=== PATIENT | male | born 1960 | race Two or more races ===

== ENCOUNTER 2023-03-05 20:41 | Inpatient (IN) | payer OTHER ==
[~2023-03-05] VITALS: Ht 170.2 cm; Wt 79.2 kg
[2023-03-05 21:58] LABS: Basophils # (auto) 0 10 ^3/uL (0-0.2); Basophils % (auto) 0.5 % (0.0-2.0); Eosinophils # (auto) 0 10 ^3/uL (0-0.8); Eosinophils % (auto) 1.1 % (0.0-7.0); Hematocrit 44.5 % (41.0-53.0); Hemoglobin 15.3 g/dL (13.5-17.5); Lymphocytes # (auto) 1.6 10 ^3/uL (0.4-5.4); Lymphocytes % (auto) 40.5 % (10.0-50.0); Mean Corpuscular Hemoglobin 32.7 pg (28.0-32.0); Mean Corpuscular Hgb Conc. 34.3 g/dL (32.0-36.0); Mean Corpuscular Volume 95.5 fL (80.0-100.0); Monocytes # (auto) 0.4 10 ^3/uL (0-1.3); Monocytes % (auto) 10.1 % (0.0-12.0); Neutrophils # (auto) 1.9 10 ^3/uL (1.6-8.6); Neutrophils % (auto) 47.8 % (37.0-80.0); Nucleated Red Blood Cells % 0.1 %; Red Blood Cells 4.66 10^6/uL (4.5-5.90); Red Cell Distribution Width 12.9 % (11.8-14.3); White Blood Cell 4.1 10^3/uL (4.4-10.8)
[2023-03-05 22:00] VITALS: PULSE 79; RESP 15; O2SAT 93
[2023-03-05 22:15] LABS: Albumin 3.8 g/dL (3.4-5.0); Calcium 8.9 mg/dL (8.5-10.1); Potassium 4.1 mmol/L (3.5-5.1)
[2023-03-05 22:18] LABS: BUN/Creatinine Ratio 18.8 (10.0-20.0); Bilirubin, Total 0.4 mg/dL (0.2-1.0); Total Protein 6.8 g/dL (6.4-8.2)
[2023-03-06] MEDS ORDERED: ONDANSETRON HCL 4 MG/2 ML VIAL IV PRN (02:30)
[2023-03-06] MEDS ORDERED: DOCUSATE SOD 100 MG CAP PO PRN (02:30)
[2023-03-06] MEDS ORDERED: ACETAMINOPHEN 325 MG TAB PO PRN (02:30)
[2023-03-06] MEDS ORDERED: NITROGLYCERIN 0.4 MG SL TAB SL PRN (02:30)
[2023-03-06] MEDS ORDERED: DEXTROSE (50%) 50ML SYRG IV PRN (02:30)
[2023-03-06] MEDS ORDERED: MORPHINE SULFATE INJ 2 MG/ml SYRG IV PRN (02:30)
[2023-03-06] MEDS ORDERED: SODIUM CHLORIDE 0.9% 1,000 ML IV SCH (02:30)
[2023-03-06 06:37] LABS: Basophils # (auto) 0 10 ^3/uL (0-0.2); Basophils % (auto) 0.4 % (0.0-2.0); Eosinophils # (auto) 0 10 ^3/uL (0-0.8); Eosinophils % (auto) 1.1 % (0.0-7.0); Hematocrit 44.4 % (41.0-53.0); Hemoglobin 15.2 g/dL (13.5-17.5); Lymphocytes # (auto) 1.6 10 ^3/uL (0.4-5.4); Lymphocytes % (auto) 36.2 % (10.0-50.0); Mean Corpuscular Hgb Conc. 34.3 g/dL (32.0-36.0); Monocytes # (auto) 0.4 10 ^3/uL (0-1.3); Monocytes % (auto) 9.9 % (0.0-12.0); Neutrophils # (auto) 2.2 10 ^3/uL (1.6-8.6); Neutrophils % (auto) 52.4 % (37.0-80.0); Nucleated Red Blood Cells % 0.1 %; Red Blood Cells 4.62 10^6/uL (4.5-5.90); Red Cell Distribution Width 12.9 % (11.8-14.3); White Blood Cell 4.3 10^3/uL (4.4-10.8)
[2023-03-06 07:09] LABS: Potassium 3.8 mmol/L (3.5-5.1)
[2023-03-06 07:13] LABS: Urine Bacteria NONE SEEN /hpf (None Seen); Urine Blood Negative /uL (Negative); Urine Mucus FEW (None Seen); Urine Specific Gravity 1.017 (1.001-1.035); Urine WBC <1 /hpf (0 - 3)
[2023-03-06 07:21] LABS: Albumin 3.6 g/dL (3.4-5.0); BUN/Creatinine Ratio 17.8 (10.0-20.0); Bilirubin, Total 0.6 mg/dL (0.2-1.0); Calcium 8.6 mg/dL (8.5-10.1); Total Protein 6.5 g/dL (6.4-8.2)
[2023-03-06 07:24] LABS: Alcohol, Urine < 3.0 mg/dL (0-10); Amphetamine Screen, Urine NEGATIVE (NEGATIVE); Barbiturate Scree,Urine NEGATIVE (NEGATIVE); Benzodiazephine Screen, Urine NEGATIVE (NEGATIVE); Cannabinoid Screen, Urine NEGATIVE (NEGATIVE); Cocaine Screen, Urine NEGATIVE (NEGATIVE); Opiate Scree,Urine NEGATIVE (NEGATIVE); Phencyclidine Screen, Urine NEGATIVE (NEGATIVE)
[2023-03-06 08:00] VITALS: PULSE 78; RESP 15; O2SAT 93
[2023-03-06] MEDS: ACCU-CHEK COMFORT CURVE STRIP VI SCH ×4 (08:22→23:08)
[2023-03-06] MEDS: InsuLIN REG 1unit/0.01ml Soln (100units/ml) SC SCH ×4 (08:23→23:15)
[2023-03-06] MEDS: ASPirin 81 mg TAB PO SCH (12:28)
[2023-03-06 12:34] LABS: Cholesterol 200 mg/dL (< 200); HDL Cholesterol 55 mg/dL (40-59); LDL Cholesterol 111 mg/dL (< 100); Triglycerides 261 mg/dL (< 150)
[2023-03-06 19:30] VITALS: PULSE 80; RESP 18; O2SAT 94
[2023-03-06] MEDS: ATORVASTATIN 20 MG TAB PO SCH (23:11)
[2023-03-06] MEDS: HYDROcodone-ACET 5/325MG TAB PO PRN (23:11)
[2023-03-07] VITALS (7 sets, daily range): BP systolic 120–171; BP diastolic 80–96; PULSE 71–93; RESP 16–17; TEMP 98.1–98.2; O2SAT 94–97
[2023-03-07 05:22] LABS: Basophils # (auto) 0 10 ^3/uL (0-0.2); Basophils % (auto) 0.5 % (0.0-2.0); Eosinophils # (auto) 0.1 10 ^3/uL (0-0.8); Eosinophils % (auto) 1.2 % (0.0-7.0); Hematocrit 48.6 % (41.0-53.0); Hemoglobin 16.6 g/dL (13.5-17.5); Lymphocytes % (auto) 43.7 % (10.0-50.0); Mean Corpuscular Hemoglobin 32.8 pg (28.0-32.0); Mean Corpuscular Hgb Conc. 34.2 g/dL (32.0-36.0); Mean Corpuscular Volume 95.9 fL (80.0-100.0); Monocytes # (auto) 0.4 10 ^3/uL (0-1.3); Neutrophils # (auto) 2.1 10 ^3/uL (1.6-8.6); Neutrophils % (auto) 45.6 % (37.0-80.0); Nucleated Red Blood Cells % 0.2 %; Red Blood Cells 5.07 10^6/uL (4.5-5.90); Red Cell Distribution Width 13.1 % (11.8-14.3); White Blood Cell 4.6 10^3/uL (4.4-10.8)
[2023-03-07 05:36] LABS: Albumin 3.7 g/dL (3.4-5.0); Calcium 8.5 mg/dL (8.5-10.1)
[2023-03-07 05:39] LABS: BUN/Creatinine Ratio 19.5 (10.0-20.0); Bilirubin, Total 0.5 mg/dL (0.2-1.0); Total Protein 6.8 g/dL (6.4-8.2)
[2023-03-07] MEDS: ACCU-CHEK COMFORT CURVE STRIP VI SCH ×4 (07:00→21:17)
[2023-03-07] MEDS: InsuLIN REG 1unit/0.01ml Soln (100units/ml) SC SCH ×4 (07:01→21:21)
[2023-03-07] MEDS: ASPirin 81 mg TAB PO SCH (10:12)
[2023-03-07] MEDS: hydrALAZINE HCL 20 MG/ML VL IV PRN (18:16)
[2023-03-07] MEDS ORDERED: METF-371 PO (20:31)
[2023-03-07] MEDS ORDERED: GEMF-66 PO (20:31)
[2023-03-07] MEDS: ATORVASTATIN 20 MG TAB PO SCH (21:17)
[2023-03-07] MEDS: HYDROcodone-ACET 5/325MG TAB PO PRN (22:22)
[2023-03-08] VITALS (7 sets, daily range): BP systolic 124–152; BP diastolic 71–88; PULSE 69–97; RESP 14–20; TEMP 97.6–98.3; O2SAT 91–98
[2023-03-08] MEDS: ACCU-CHEK COMFORT CURVE STRIP VI SCH ×4 (06:04→21:49)
[2023-03-08] MEDS: InsuLIN REG 1unit/0.01ml Soln (100units/ml) SC SCH ×4 (06:05→21:51)
[2023-03-08] MEDS: ASPirin 81 mg TAB PO SCH (09:50)
[2023-03-08] MEDS: HYDROcodone-ACET 5/325MG TAB PO PRN (16:22)
[2023-03-08] MEDS: hydrALAZINE HCL 20 MG/ML VL IV PRN (17:34)
[2023-03-08] MEDS ORDERED: CLOPIDOGREL BISULFATE 75 MG TAB PO ONE (21:45)
[2023-03-08] MEDS: ATORVASTATIN 20 MG TAB PO SCH (21:48)
[2023-03-09 05:00] VITALS: BP 103/59; PULSE 75; RESP 20; TEMP 98.1; O2SAT 95
[2023-03-09] MEDS: InsuLIN REG 1unit/0.01ml Soln (100units/ml) SC SCH (06:09)
[2023-03-09] MEDS: ACCU-CHEK COMFORT CURVE STRIP VI SCH (06:09)
[2023-03-09 06:10] LABS: BUN/Creatinine Ratio 16.1 (10.0-20.0); Potassium 4.1 mmol/L (3.5-5.1)
[2023-03-09 06:13] LABS: INR 1.09 (0.9-1.15); Partial Thromboplastin Time 28.9 SEC (24.5-34.5)
[2023-03-09 06:14] LABS: Calcium 8.5 mg/dL (8.5-10.1)
[2023-03-09 06:23] LABS: Basophils # (auto) 0 10 ^3/uL (0-0.2); Basophils % (auto) 0.3 % (0.0-2.0); Eosinophils # (auto) 0 10 ^3/uL (0-0.8); Eosinophils % (auto) 0.5 % (0.0-7.0); Hemoglobin 15.2 g/dL (13.5-17.5); Lymphocytes # (auto) 1.5 10 ^3/uL (0.4-5.4); Lymphocytes % (auto) 26.9 % (10.0-50.0); Mean Corpuscular Hemoglobin 32.6 pg (28.0-32.0); Mean Corpuscular Hgb Conc. 33.8 g/dL (32.0-36.0); Mean Corpuscular Volume 96.4 fL (80.0-100.0); Monocytes # (auto) 0.4 10 ^3/uL (0-1.3); Monocytes % (auto) 7.6 % (0.0-12.0); Neutrophils # (auto) 3.7 10 ^3/uL (1.6-8.6); Neutrophils % (auto) 64.7 % (37.0-80.0); Nucleated Red Blood Cells % 0.1 %; Red Blood Cells 4.67 10^6/uL (4.5-5.90); White Blood Cell 5.7 10^3/uL (4.4-10.8)
[2023-03-09 09:00] VITALS: BP 118/75; PULSE 74; RESP 20; TEMP 98; O2SAT 95
[2023-03-09] MEDS ORDERED: CLOPIDOGREL BISULFATE 75 MG TAB PO SCH (10:00)
[2023-03-09] MEDS ORDERED: ASPI-325 PO (10:49)
[2023-03-09] MEDS ORDERED: CLOP75TA70 PO (10:49)
[2023-03-09] MEDS: ASPirin 81 mg TAB PO SCH (11:16)
== END 2023-03-09 14:00 | disposition home or self-care (01) | DRG 65 ==
LOC: ER 20:41 → TELE 03-06 02:31 → TELE-WESTW 03-06 21:09 → TELE 03-06 22:04 → TELE-WESTW 03-07 10:36
PROVIDERS: ADMIT Nurse Practitioner Acute Care; ATTEND Nurse Practitioner Acute Care
DX: I63.9 Cerebral infarction, unspecified (principal); G81.91 Hemiplegia, unspecified affecting right dominant side; E11.65 Type 2 diabetes mellitus with hyperglycemia; I10 Essential (primary) hypertension; R47.81 Slurred speech; E78.5 Hyperlipidemia, unspecified; E78.00 Pure hypercholesterolemia, unspecified; F19.10 Other psychoactive substance abuse, uncomplicated; F17.200 Nicotine dependence, unspecified, uncomplicated; Z79.82 Long term (current) use of aspirin; Z79.899 Other long term (current) drug therapy; Z80.42 Family history of malignant neoplasm of prostate; Z82.5 Family history of asthma and other chronic lower respiratory diseases; Z83.3 Family history of diabetes mellitus
CPT/HCPCS: 36415; 70450; 70551; 71045; 80048; 80053; 80061; 80307; 81001; 82962; 83036; 83880; 84484; 85025; 85610; 85730; 87040; 93005; 93306; 93886; 96360; 97110; 97116; 97163; 97530; G0378; J1815